=== PATIENT | female | born 1975 | race Caucasian/White ===

== ENCOUNTER 2019-05-04 18:54 | Emergency (ER) | payer MEDICAID, OTHER | END 2019-05-04 20:05 | disposition home or self-care (01) | LOC: ER FS 18:54 ==

== ENCOUNTER 2019-07-01 11:16 | Emergency (ER) | payer MEDICAID ==
[~2019-07-01] VITALS: Ht 154.9 cm; Wt 76.8 kg
[2019-07-01] MEDS ORDERED: HYDROmorphone 2 MG/ML VIAL (DILAUDID) IV STA ×2 (11:35→13:49)
[2019-07-01] MEDS ORDERED: ORPHENADRINE 60 MG/2 ML (NORFLEX) AMP IVP STA (11:35)
[2019-07-01] MEDS ORDERED: ONDANSETRON 4 MG/2 ML (SDV) Z0FRAN IVP STA (11:35)
--- NOTE | 2019-07-01 12:25 | ED Fall/Injury ---
General Chief Complaint: Trauma-Non Activation Stated Complaint: NECK/BACK INJURY Nursing Triage Note: Pt arrived POV with a c/o fall from standing 3 days ago with pain in neck/back. Pt denies LOC. Pt is A&Ox4. Pt has hx of bulging cervical disc and chronic pain. Source: patient History of Present Illness Date Seen by Provider: Jul 01, 2019 Time Seen by Provider: 11:19 Initial Comments 43-year-old female presenting with complaints of acute on chronic pain in her neck and back. She states that on Monday she was horsing around with her family and had fallen from standing height backward. She had increased pain from her neck, way down her back. She has chronic pain anyway but it has been flared up since his fall. She now has a migraine headache today as well. She has not taken any of her chronic pain medications or nephropathy medications today. She also has not called or contacted her pain management providers in [place] because she states that they would only "give me tramadol." She does report that she is on a pain contract and knows that she can get IV medications here in the [facility] department but she cannot be prescribed anything to take home. She does bring a neck and back done at the end of March. She states that she has increased neuropathic pain to her feet as well. No acute loss of bowel or bladder control. She does have difficulty holding her bladder long enough to get to the bathroom just because of increased pain and difficulty with moving. Location Injury Occurred: Neck/back Allergies and Home Medications Allergies Coded Allergies: aspirin (Verified Allergy, Unknown, 07/01/19) Patient Home Medication List Home Medication List Reviewed: Yes Review of Systems Review of Systems Constitutional: No chills, No fever Eyes: No Symptoms Reported Ears, Nose, Mouth, Throat: no symptoms reported Respiratory: no symptoms reported Cardiovascular: no symptoms reported Gastrointestinal: no symptoms reported Genitourinary: No incontinence Musculoskeletal: see HPI, back pain (acute on chronic), muscle stiffness, muscle cramps (acute on chronic in her back), neck pain (acute on chronic) Skin: no symptoms reported Psychiatric/Neurological: Headache, Paresthesia (chronic) Past Sefpuqe-Nzxylu-Xesroe Hx Past Med/Social Hx: Reviewed Nursing Past Med/Soc Hx Patient Social History Alcohol Use: Denies Use Recreational Drug Use: No Type Used: Cigarettes Recent Foreign Travel: No Contact w/Someone Who Travel: No Recent Infectious Disease Expo: No Physical Abuse: No Sexual Abuse: No Mistreated: No Fear: No Seasonal Allergies Seasonal Allergies: No Past Medical History Surgeries: Yes (Right Hip Replacement) Respiratory: No Cardiac: No Neurological: Yes Headaches /Migraines : No Genitourinary: No Gastrointestinal: No Musculoskeletal: No Endocrine: No HEENT: No Cancer: No Psychosocial: No Physical Exam Vital Signs Vital Signs - First Documented Capillary Refill : Less Than 3 Seconds Height, Weight, BMI Height: '" Weight: lbs. oz. kg; 32.00 BMI Method: General Appearance: WD/WN, moderate distress (patient appears to be in pain and is grimacing) HEENT: PERRL/EOMI, pharynx normal Neck: limited range of motion (due to pain), tender lateral (with muscle spasms in the paraspinal muscles) Cardiovascular: normal peripheral pulses, regular rate, rhythm Respiratory: lungs clear, normal breath sounds, no respiratory distress, no accessory muscle use Back: muscle spasm, vertebral tenderness, other (patient complaining of pain with even light touch of anywhere on her back) Extremities: normal capillary refill, other (patient complains of pain with palpation of her legs) Neurologic/Psychiatric: network director II-XII nml as tested, alert, oriented x 3 Skin: normal color, warm/dry Lb Coma Score Best Eye Response: (4) Open Spontaneously Best Verbal Response: (5) Oriented Best Motor Response: (6) Obeys Commands Lb Total: 15 Progress/Results/Core Measures Results/Orders My Orders Orders - AAMIR LOREDO MD Ed Iv/Invasive Line Start (07/01/19 11:35) Hydromorphone Injection (Dilaudid Inject (07/01/19 11:35) Orphenadrine Injection (Norflex Injectio (07/01/19 11:35) Ondansetron Injection (Zofran Injectio (07/01/19 11:35) Ct Cerv/Thoracic/Lumbar Wo (07/01/19 12:08) Hydromorphone Injection (Dilaudid Inject (07/01/19 13:49) Vital Signs/I&O 07/01/19 07/01/19 07/01/19 11:37 11:37 14:10 Temp 35.7 35.7 Pulse 112 112 88 Resp 16 16 14 B/P (MAP) 131/91 (104) 131/91 (104) 135/94 Pulse Ox 99 99 95 Blood Pressure Mean: 104 POS Progress Progress Note #1: Progress Note With her having had new injury and fall Will obtain imaging of her cervical thoracic and lumbar spine to evaluate for possible compression fracture or acute bony injury. Also attempted to reach her pain management providers to notify them that she was here and that I was providing IV medication for pain as well as verify that she was on a pain management contract. Patient states that she is able to receive emergent treatment in the ED but that she cannot be given medications to take home. Progress Note #2: Progress Note Patient reports improvement in her headache and pain after treatment with the Dilaudid and Norflex. I was unable to speak with any of the providers at her headache and pain center but did prior fight with the office manager receptionist that she is a patient at the Center and on a pain contract. The CT scan does not demonstrate any acute bony injury. With her having some improvement in her symptoms she felt that she could try to go home and rest. Will give an additional 0.5 mg of Dilaudid on top of the 1 mg she had already received. She was able to arrange for an emergent visit with the pain management clinic for tomorrow at 12:30 so encouraged to keep that appointment and see what else they could do to help her. Diagnostic Imaging Diagonstic Imaging: CT Plain Films/CT/US/NM/MRI: c-spine (Thoracic and Lumbar) Comments NAME: BERENICE BRYAN [facility] REC#: [id number] PT STATUS: REG ER : 1975 PHYSICIAN: AAMIR LOREDO MD ADMIT DATE: 07/01/19/ER FS Signed POSDate of Exam:07/01/19 CT CERV/THORACIC/LUMBAR WO INDICATION: Fall three days ago with pain in the neck and back. COMPARISON: No prior studies are available for comparison. TECHNIQUE: Axial imaging through the cervical, thoracic, and lumbar spine was performed without contrast. Sagittal and coronal reformations were also performed. FINDINGS: CT cervical spine: There is some straightening of the normal cervical lordotic curvature. There is some mild degenerative disc disease at C5-C6 level with disc space narrowing. No fractures are seen. Prevertebral tissues are within normal limits. Odontoid is intact. IMPRESSION: Mild cervical spondylosis. No acute bony abnormality is detected. CT of thoracic spine: Curvature and alignment of the thoracic spine is normal. Vertebral body heights are maintained apart from chronic-appearing superior endplate fractures at approximately T7 and T8 levels. No retropulsion is seen. The paraspinous tissues are unremarkable. There is generalized spondylosis with variable disc space narrowing and marginal spurring. IMPRESSION: Chronic changes. No acute bony abnormality is detected. CT lumbar spine: Curvature and alignment of the lumbar spine is normal. Vertebral body heights are well maintained. No compression fracture is seen. Disc spaces are fairly well maintained apart from mild narrowing at the L5-S1 level. The paraspinous tissues are unremarkable. IMPRESSION: No acute bony abnormality is detected. Dictated by: Dictated on workstation # [id number] Dict: 07/01/19 1250 Trans: 07/01/19 1550 [id number] Interpreted by: RIK TRENT MD Electronically signed by: RIK TRENT MD 07/01/19 1550 Departure Impression Primary Impression: Acute exacerbation of chronic low back pain Additional Impressions: Neck pain Chronic thoracic back pain Qualified Codes: M54.6 - Pain in thoracic spine; G89.29 - Other chronic pain Fall at home Qualified Codes: W19.XXXA - Unspecified fall, initial encounter; Y92.009 - Unspecified place in unspecified non-institutional (private) residence as the place of occurrence of the external cause Generalized headache Peripheral neuropathic pain Disposition: 01 HOME, SELF-CARE Condition: Stable Departure-Patient Inst. Decision time for Depature: 13:51 Referrals: RADHA DOLL (PCP/Family) Primary Care Physician Patient Instructions: Chronic Neck Pain (DC), Upper Back Pain (DC), Low Back Pain (DC), Chronic Pain (DC) Add. Discharge Instructions: Continue on your regular medicines. Follow up with your pain management provider tomorrow as scheduled and see your regular providers for continued care All discharge instructions reviewed with patient and/or family. Voiced understanding. AAMIR LOREDO MD Jul 01, 2019 12:25 POS
--- NOTE | 2019-07-01 12:58 | Diagnostic Imaging Report ---
INDICATION: Fall three days ago with pain in the neck and back. COMPARISON: No prior studies are available for comparison. TECHNIQUE: Axial imaging through the cervical, thoracic, and lumbar spine was performed without contrast. Sagittal and coronal reformations were also performed. FINDINGS: CT cervical spine: There is some straightening of the normal cervical lordotic curvature. There is some mild degenerative disc disease at C5-C6 level with disc space narrowing. No fractures are seen. Prevertebral tissues are within normal limits. Odontoid is intact. IMPRESSION: Mild cervical spondylosis. No acute bony abnormality is detected. CT of thoracic spine: Curvature and alignment of the thoracic spine is normal. Vertebral body heights are maintained apart from chronic-appearing superior endplate fractures at approximately T7 and T8 levels. No retropulsion is seen. The paraspinous tissues are unremarkable. There is generalized spondylosis with variable disc space narrowing and marginal spurring. IMPRESSION: Chronic changes. No acute bony abnormality is detected. CT lumbar spine: Curvature and alignment of the lumbar spine is normal. Vertebral body heights are well maintained. No compression fracture is seen. Disc spaces are fairly well maintained apart from mild narrowing at the L5-S1 level. The paraspinous tissues are unremarkable. IMPRESSION: No acute bony abnormality is detected. Dictated by: Dictated on workstation # [id number]
[2019-07-01 14:10] VITALS: BP 135/94
== END 2019-07-01 14:10 | disposition home or self-care (01) ==
LOC: EDUNIT# 11:16 → ER FS 11:18
DX: M54.5 Low back pain (principal); G89.29 Other chronic pain; M54.2 Cervicalgia; M54.6 Pain in thoracic spine; R51 Headache; M79.2 Neuralgia and neuritis, unspecified; R40.2142 Coma scale, eyes open, spontaneous, at arrival to emergency department; R40.2252 Coma scale, best verbal response, oriented, at arrival to emergency department; R40.2362 Coma scale, best motor response, obeys commands, at arrival to emergency department; Z88.6 Allergy status to analgesic agent; Z86.69 Personal history of other diseases of the nervous system and sense organs; Z96.641 Presence of right artificial hip joint; W18.39XA Other fall on same level, initial encounter
CPT/HCPCS: 72125; 72128; 72131

== ENCOUNTER 2019-07-04 18:14 | Emergency (ER) | payer MEDICAID ==
[~2019-07-04] VITALS: Ht 154.9 cm; Wt 75.2 kg
[2019-07-04] MEDS ORDERED: ONDANSETRON 4 MG (ZOFRAN) ORAL DISSOLVE TAB SL STA (18:29)
[2019-07-04] MEDS ORDERED: HYDROmorphone 2 MG/ML VIAL (DILAUDID) IM ONE (18:30)
--- NOTE | 2019-07-04 18:37 | ED General ---
General Chief Complaint: General Problems/Pain Stated Complaint: VOMITING,NECK PAIN Source of Information: Patient Exam Limitations: No Limitations History of Present Illness Date Seen by Provider: Jul 04, 2019 Time Seen by Provider: 18:19 Initial Comments Here with report of acute exacerbation of her chronic neck pain. She was seen 3 days ago for the same and given injection. Patient is on a pain contract and actually saw her maintenance painter on Monday, today after visit. She was supposed to get neck surgery for bulging disks today but the insurance is not going through per the patient. Comes in today with no new injuries or concerns with just acute exacerbation. She states the tramadol 100 mg is not working. She knows that she cannot get prescriptions but is hoping for something for the acute exacerbation. The pain is in both sides of her neck and radiates to her whole body. She states this is typical. Timing/Duration: 3-4 Days, Changing Over Time Severity: Moderate Associated Systoms: No Fever/Chills; Nausea/Vomiting; No Shortness of Air, No Weakness Allergies and Home Medications Allergies Coded Allergies: aspirin (Verified Allergy, Unknown, 07/01/19) Patient Home Medication List Home Medication List Reviewed: Yes Review of Systems Review of Systems Constitutional: see HPI; No chills, No fever Respiratory: no symptoms reported Cardiovascular: no symptoms reported Gastrointestinal: nausea, vomiting Musculoskeletal: back pain, joint pain, muscle pain, neck pain Skin: no symptoms reported Psychiatric/Neurological: Anxiety, Paresthesia (chronic) Past Uaznxfh-Rqhssd-Gqlhya Hx Past Med/Social Hx: Reviewed Nursing Past Med/Soc Hx Patient Social History Alcohol Use: Denies Use Recreational Drug Use: No Smoking Status: Current Everyday Smoker Type Used: Cigarettes 2nd Hand Smoke Exposure: No Recent Hopitalizations: No Physical Abuse: No Sexual Abuse: No Mistreated: No Fear: No Seasonal Allergies Seasonal Allergies: No Past Medical History Surgeries: Yes (Right Hip Replacement) Respiratory: No Cardiac: No Neurological: Yes Headaches /Migraines Genitourinary: No Gastrointestinal: No Musculoskeletal: Yes (Neck pain) Chronic Back Pain Endocrine: No HEENT: No Cancer: No Psychosocial: No Integumentary: No Blood Disorders: No Family Medical History Reviewed Nursing Family Hx No Pertinent Family Hx Physical Exam Vital Signs Vital Signs - First Documented 07/04/19 18:18 Temp 36.0 Pulse 62 Resp 18 B/P (MAP) 139/98 (112) Pulse Ox 98 O2 Delivery Room Air Capillary Refill : Height, Weight, BMI Height: '" Weight: lbs. oz. kg; 32.00 BMI Method: General Appearance: Anxious, Mild Distress HEENT: PERRL/EOMI, Pharynx Normal Neck: Supple, Limited Range of Motion (due to pain), Other (tender throughout the neck) Respiratory: Lungs Clear, Normal Breath Sounds Cardiovascular: Regular Rate, Rhythm, No Murmur Extremity: Other (moves all extremities without difficulty. Tender everywhere you touch. She states that is typical) Neurologic/Psychiatric: Alert, Oriented x3 Skin: Normal Color, Warm/Dry Progress/Results/Core Measures Suspected Sepsis SIRS Temperature: Pulse: Respiratory Rate: Blood Pressure / Mean: Results/Orders My Orders Orders - CHANO BUTTERFIELD MD Hydromorphone Injection (Dilaudid Inject (07/04/19 18:30) Ondansetron Oral Dissolve Tab (Zofran (07/04/19 18:29) Medications Given in ED Current Medications Medications Dose Ordered Sig/Edmond Route Start Time Stop Time Status Last Admin Dose Admin Hydromorphone HCl 1 mg ONCE ONCE IM 07/04/19 18:30 07/04/19 18:31 DC 07/04/19 18:41 1 MG Vital Signs/I&O 07/04/19 18:18 Temp 36.0 Pulse 62 Resp 18 B/P (MAP) 139/98 (112) Pulse Ox 98 O2 Delivery Room Air Capillary Refill : Progress Note : Progress Note Seen and evaluated. I did review previous visit and scanning. I did discuss with her about the previous visit and her pain management contract and follow-up visit. I have offered a single dose of Dilaudid and ondansetron. After, patient will be discharged home to follow up with her pain management doctor as she's had no new or acute injury. Dilaudid 1 mg IM and Zofran 4 mg by mouth. Discharged home with return precautions. Patient verbalize understanding of instructions and agreement with plan. Departure Impression Primary Impression: Exacerbation of chronic back pain Additional Impression: Neck pain Disposition: HOME, SELF-CARE Condition: Stable Departure-Patient Inst. Decision time for Depature: 19:11 Referrals: RADHA DOLL (PCP/Family) Primary Care Physician Patient Instructions: Chronic Pain (DC), Chronic Neck Pain (DC) Add. Discharge Instructions: All discharge instructions reviewed with patient and/or family. Voiced understanding. Follow up with your pain management doctor for further evaluation and medication adjustment. Return for worse pain, weakness, breathing problems or other concerns as needed. CHANO BUTTERFIELD MD Jul 04, 2019 18:37 POS
[2019-07-04 19:15] VITALS: BP 126/84
== END 2019-07-04 19:15 | disposition home or self-care (01) ==
LOC: EDUNIT# 18:14 → ER FS 18:15
DX: M54.2 Cervicalgia (principal); M54.9 Dorsalgia, unspecified; G89.29 Other chronic pain; G43.909 Migraine, unspecified, not intractable, without status migrainosus; F17.210 Nicotine dependence, cigarettes, uncomplicated; Z79.82 Long term (current) use of aspirin; Z96.641 Presence of right artificial hip joint
CPT/HCPCS: 99284